=== PATIENT | male | born 1955 | race Caucasian/White ===

== ENCOUNTER 2017-01-02 07:36 | Inpatient (IN) ==
[2017-01-02] MEDS ORDERED: SODIUM CHLORIDE 0.9% 1,000 ML IV STA ×2 (07:58→08:07)
--- NOTE | 2017-01-02 08:07 | Emergency Department Note ---
Duke Miller Emily, am scribing for, and in the presence of, Mao Koch MD 08:01. Zee Miller James D, MD, personally performed the services described in this documentation, ascribed by Loreta Wall in my presence, and it is both accurate and complete 805 . Arrival - Arrival Chief Complaint: Altered Mental Status Stated Complaint: altered mental status ED Nursing Triage Note: Brought in per EMS from [facility] with c/ o altered mental status onset this am per nursing staff. Resposive to painful stimuli only. +fever. Mode of Arrival: Stretcher Limitations: Altered Mental Status Source: EMS, RN Notes Reviewed Time Seen by Provider: 01/02/17 07:54 - History of Present Illness HPI Narrative: Pt is a 61 y/o male who came to ED by EMS from [facility] for further evaluation of AMS that onset this morning. Pt is non verbal and not following commands. Pt's glucose level was 142 at detention and usually is never below 350. Pt has granulated sugar around mouth. Onset (ago): hour(s) Consistency: constant Severity: moderate Severity scale (1-10): 7 Quality: other (altered) Allergies/Adverse Reactions: Allergies Allergy/AdvReac Type Severity Reaction Status Date / Time Sulfa (Sulfonamide Allergy Unknown/Unable Verified 01/02/17 08:14 Antibiotics) to obtain Review of System - Review of System ROS unobtainable: due to mental status Medical,Surgical,& Family Hx - Medical History Endocrine: History of: Diabetes Mellitus (NIDDM) - Family History Family History: noncontributory - Social History Smoking Status: Never smoker Marital Status: Single Lives With:: detention Exam Vital Signs: Vital Signs Temperature 99.0 F 01/02/17 07:36 Pulse Rate 121 H 01/02/17 07:42 Respiratory Rate 32 H 01/02/17 07:42 Blood Pressure 161/86 01/02/17 07:36 O2 Sat by Pulse Oximetry 98 01/02/17 07:40 GENERAL: This is a chronically ill appearing white male with granulated sugar around his oropharynx, in no apparent distress. Gag reflex is intact. VITAL SIGNS: Reviewed HEENT: Head is atraumatic and normocephalic. Pupils are equal round react to light. Extraocular movements are intact. Oropharynx is benign with dry mucous membranes. NECK: Neck is soft and supple without tenderness. There are no masses. There is no lymphadenopathy. LUNGS: Lungs are clear to auscultation. Chest rises symmetrically. There is no chest wall tenderness. CV: Heart is rapid rate without murmurs rubs or gallops. ABDOMEN: Abdomen is soft, nontender to palpation. There are no abdominal abnormal masses palpated. There is no organomegaly. Bowel sounds are present and active. SKIN: Skin is warm and dry. No rash. EXTREMITIES: Patient has full range of motion without tenderness. There is no pedal edema. NEUROLOGIC: Awake but does not follow commands. Nonverbal. Cranial nerves II through XII are grossly intact. Toes are downgoing bilaterally. Course - Consultations Consultation #1: Discussed with hospitalist. Patient will be admitted to their service. Time: 08:49 Results - Labs CBC & BMP: 01/02/17 07:49 01/02/17 07:49 Lab Results: I have reviewed the patients labs Labs: Laboratory Tests 01/02/17 08:17 POC Glucose 155 H Laboratory Tests 01/02/17 07:49 INR 1.2 PT Patient/Control Mix 12.9 Circ Anticoag PTT 29.6 Laboratory Tests 01/02/17 01/02/17 01/02/17 07:49 08: 08:46 ABG pH 7.603 H* ABG pCO2 23.2 L ABG pO2 93.4 ABG HCO3 27.2 H ABG Total CO2 19.5 L ABG O2 Saturation 98.2 ABG Base Excess 3.1 H Sodium 132 L Potassium 3.2 L Chloride 96 L Carbon Dioxide 25 Anion Gap 14.2 BUN 23 H Creatinine 0.70 GFR Calculation 109 BUN/Creatinine Ratio 32.00 H Glucose 144 H POC Glucose 155 H Calculated Osmolality 270.5 L Total Bilirubin 2.50 H AST 56 H ALT 56 Alkaline Phosphatase 187 H Troponin I 0.332 H Total Protein 8.2 Albumin 3.1 L Globulin 5.1 H Albumin/Globulin Ratio 0.6 L TSH 3rd Generation 2.540 Laboratory Tests 01/02/17 07:49 Urine RBC 2 Urine WBC 10 Laboratory Tests 01/02/17 07:49 WBC 12.4 H RBC 3.81 Hgb 14.2 Hct 35.9 L MCV 94.2 MCH 37 H MCHC 39.6 H Plt Count 131 Lymph % (Auto) 10.2 L Harford % (Auto) 15.5 H Neut # (Auto) 9.0 H Lymph # (Auto) 1.3 L Harford # (Auto) 1.9 H Laboratory Tests 01/02/17 01/02/17 01/02/17 07:49 07:49 08:35 Total Counted 100 Segmented Neutrophils 70 Band Neutrophils 7 Lymphocytes 16 L Monocytes 7 Platelet Estimate Normal Hypochromasia 1+ Ovalocytes Slight Lactic Acid 3.6 H Ammonia 251 H - EKG EKG results: interpreted by ERMD - Impressions EKG: Sinus tachycardia with rate of 118, nonspecific ST-T wave changes, normal axis. - Diagnostic Findings Procedure: Chest x-ray: image reviewed by me, CT: image reviewed by me (CT head : No acute intracranial process. No significant interval change from the previous study.) Disposition Clinical Impression: Altered mental status, Elevated troponin, UTI (urinary tract infection), Diabetes mellitus Case discussed with: patient Disposition: Still a Patient Condition: Guarded Time of Disposition: 08:49
[2017-01-02 08:16] LABS: Basophils # 0.1 10*3/uL (0.0-0.2); Basophils % 0.6 % (0.0-0.8); Eosinophils # 0.1 10*3/uL (0.0-0.87); Eosinophils % 0.6 % (0.00-10.9); Hematocrit 35.9 VOL% (42.0-52.0); Immature Granulocytes % 0.6 %; Immature Granulocytes Absolute 0.07 #; Lymphocytes # 1.3 10*3/uL (1.4-4.0); Lymphocytes % 10.2 % (21.2-54.2); Mean Corpuscular HGB Conc 39.6 GM/DL (32-36); Mean Corpuscular Hemoglobin 37 PG (27-34); Mean Corpuscular Volume 94.2 FL (87-102); Mean Platelet Volume 10.1 FL (9.6-12.0); Monocytes # 1.9 10*3/uL (0.11-0.8); Monocytes % 15.5 % (1.7-12.7); Neutrophils % 72.5 % (38.7-73.9); Platelet Count 131 T/CUMM (130-400); Red Blood Count 3.81 MC/CUMM (3.8-5.5); Red Cell Distribution Width 12.2 % (9.3-17.3); White Blood Count 12.4 T/CUMM (4-12)
[2017-01-02 08:29] LABS: INR 1.2; PT Patient Result 12.9 SECS; Partial Thromboplastin Time 29.6 SECS (0-40)
[2017-01-02 08:37] LABS: Alanine Aminotransferase 56 U/L (16-61); Albumin 3.1 G/DL (3.4-5.0); Alkaline Phosphatase 187 U/L (45-117); Apearance,Urine Hazy (Clear); Aspartate Amino Transferase 56 U/L (0-37); Bacteria,Urine Occasional /HPF (Few); Bilirubin,Urine Negative (Negative); Blood Urea Nitrogen 23 MG/DL (7-18); Blood, Urine Trace mg/dL (Negative); Calcium 9.7 MG/DL (8.5-10.1); Glucose 144 MG/DL (74-106); Glucose,Urine (UA) >=1000 mg/dL (Negative); Ketones,Urine Negative (Negative); Mucus,Urine Occasional /LPF (Occasional); Nitrite,Urine Negative (Negative); Osmolality,Calculated 270.5 MOS/KG (273-304); Potassium 3.2 MMOL/L (3.5-5.1); Protein,Urine Negative; RBC,Urine 2 /HPF (0-4); Sodium 132 MMOL/L (136-145); Squamous Epithelial Cell,Urine Occasional /HPF (0-10); Total Protein 8.2 G/DL (6.4-8.3); Urine Color Yellow (Yellow); Urine Specific Gravity 1.005 (1.001-1.035); WBC,Urine 10 /HPF (0-6)
[2017-01-02 08:38] LABS: Troponin I Only 0.332 NG/ML (0.00-0.045)
--- NOTE | 2017-01-02 08:41 | EKG Report ---
Stationary ECG Study [facility] ER Test Date: 01/02/2017 8:24:48 AM Pat Name: PK STEARNS Department: Room: Gender: M Community Support Associate: : 1955 Requested by: Mao Jimenez Order Number: [id number] Reading MD: LEEANN JOHNSON Intervals Pitman Rate: 118 P: 67 DC: 141 QRS: 50 QRSD: 98 T: 67 QT: 340 QTc: 410 Interpretive Statements SINUS TACHYCARDIA NONSPECIFIC T-WAVE ABNORMALITY Electronically Signed On 01-02-17 16:54:19 CDT by LEEANN JOHNSON [email or web address]
[2017-01-02 08:44] LABS: ABG Base Excess 3.1 MMOL/L (-2.5-2.5); ABG HCO3 27.2 MMOL/L (20-26); ABG Oxygen Saturation 98.2 % (95-100); ABG PCO2 23.2 MM HG (35-48); ABG PO2 93.4 MM HG (80-95); ABG TCO2 19.5 MMOL/L (23-27)
[2017-01-02 08:47] LABS: ABG PH 7.603 (7.35-7.45)
[2017-01-02 08:48] LABS: Barbiturates Screen,Urine Negative (Negative); Benzodiazepines Screen,Urine Negative (Negative); Cannabinoid Screen,Urine Negative (Negative); Opiate Screen,Urine Negative (Negative); Phencyclidine Screen,Urine Negative (Negative)
[2017-01-02] MEDS ORDERED: cefTRIAXone 1,000 MG in SODIUM CHLORIDE 0.9% 100 ML IV STA (08:50)
[2017-01-02 09:06] LABS: Hemoglobin 14.2 GM/DL (14.0-18.0)
[2017-01-02] MEDS ORDERED: cefTRIAXone 1,000 MG VIAL ONE (09:09)
--- NOTE | 2017-01-02 09:11 | CT Report ---
History: Mental status changes Date: 01/02/2017 Study: CT head without contrast Comparison exam: December 24, [address] sections were obtained through the head without IV contrast. Total DLP measures 1025.6 mGy*cm. This CT exam was performed using one or more the following dose reduction techniques: Automated exposure control, adjustment of the MA and/or KV according to patient size, or use of iterative reconstruction technique. The ventricles are midline in position without evidence of hydrocephalus. There is no mass or parenchymal hemorrhage. There is no gross CT evidence of acute cortical stroke. There is minimal cerebral atrophy. There is a small amount of ill-defined low density in the periventricular white matter without mass effect compatible with changes of small vessel disease. There is no acute extra-axial hematoma. There is no acute abnormality of the calvarium. The partially visualized paranasal sinuses and mastoid air cells are clear Impression: No acute intracranial process. No significant interval change from the previous study PROCEDURE INTERPRETED AT [facility] DEPARTMENT OF RADIOLOGY Final Report Signed by: Dr. Talita Rogers
[2017-01-02 09:12] LABS: Band Neutrophils 7 % (0-10); Hypochromasia 1+; Lymphocytes 16 % (20-55); Ovalocytes Slight; Platelet Estimate Normal; Segmented Neutrophils 70 % (50-85); Total Cells Counted 100
[2017-01-02 09:17] LABS: Ammonia 251 UMOL/L (11-32)
[2017-01-02] MEDS ORDERED: ONDANSETRON 4 MG/2 ML VIAL IV PRN (10:02)
[2017-01-02] MEDS ORDERED: ALBUTEROL 2.5 MG/3 ML NEB RESP TX PRN (10:02)
[2017-01-02] MEDS ORDERED: NALOXONE 0.4 MG/ML VIAL ONE (10:04)
[2017-01-02] MEDS ORDERED: NALOXONE 0.4 MG/ML VIAL IV STA (10:05)
[2017-01-02] MEDS ORDERED: SODIUM CHLORIDE 0.9% 1,900 ML IV ONE ×2 (10:15→12:21)
[2017-01-02] MEDS ORDERED: LACTULOSE 20 GM/30 ML UDCUP NG STA (10:19)
[2017-01-02 10:39] LABS: Risk Ratio 1.43; VLDL CHOLESTEROL 26.6 MG/DL
[2017-01-02] MEDS ORDERED: PANTOPRAZOLE 40 MG VIAL IV ONE (10:42)
[2017-01-02] MEDS: PANTOPRAZOLE 40 MG VIAL IV SCH (10:44)
--- NOTE | 2017-01-02 10:47 | Hospitalist History & Physical ---
<Trip Villarreal - Last Filed: 01/02/17 10:43> Assessment and Plan (1) Altered mental status Status: Acute Assessment and plan: Admit to ICU. Cardiac monitoring. Ammonia 251. ph 7.6. Give lactulose once and repeat. CT negative. CXR negative. Lactic acid 3.6 WBC 12.4. Implement sepsis protocol. Haywood catherer. Strict I&Os. Blood cultures pending. IV antibiotics. Current Visit: Yes (2) Diabetes mellitus Status: Acute Assessment and plan: Accuchecks achs. SSI as necessary. Current Visit: Yes (3) Elevated troponin Status: Acute Assessment and plan: Cycle troponins and cardiac enzymes. Current Visit: Yes (4) UTI (urinary tract infection) Status: Acute Assessment and plan: IVF. IV antibiotics (Zosyn) Current Visit: Yes (5) Hypokalemia Status: Acute Assessment and plan: K 3.2. Replace via ng tube and recheck. Current Visit: Yes History of Present Illness Chief complaint: altered mental status History of present illness: Mr. Aquino is a 61 year old male with a history of dm, alcohol abuse, bph, and anemia that was transferred from [facility] for further evaluation of altered mental status. Per chart review, pt. was very lethargic this am. Nurse checked his blood sugar and he was 168. Because they are used to patient' s blood sugars in the 300s, they gave him sugar per mouth. They noted an initial increase in his responsiveness but that declined. The patient began to sweat profusely, remained nonverbal and responded only to tactile stimuli. They alerted EMS and pt was transported to our facility. On examination in ED bed 9, patient was noted to be responsive only to painful stimuli. Labs reveal elevated WBC at 12.5, lactic acid of 3.6, ph of 7.6, and elevated troponin. Pt' s case was dicussed with Dr. Mckeon and Dr. Del Valle; patient will be accepted onto our service. Pt. will be admitted and placed in ICU for close monitoring. Sepsis protocol will be implemented. Home Medications Medication Instructions Recorded Confirmed Type Furosemide [Furosemide] 40 mg PO BID 01/02/17 01/02/17 History Insulin Aspart [NovoLOG FlexPen] 8 units SUBCUT AC 01/02/17 01/02/17 History Insulin Glargine,Hum.rec.anlog 47 units SUBCUT BID 01/02/17 01/02/17 History [Lantus SoloStar] Magnesium Hydroxide Susp [Milk of 30 ml PO DAILY PRN 01/02/17 01/02/17 History Magnesia] Methocarbamol [Methocarbamol] 750 mg PO Q8H PRN 01/02/17 01/02/17 History Multivitamin (Centrum) [Centrum 1 tablet PO DAILY 01/02/17 01/02/17 History Tab] Omeprazole [Omeprazole] 20 mg PO BID 01/02/17 01/02/17 History Ondansetron HCl [Ondansetron HCl] 4 mg PO Q6H PRN 01/02/17 01/02/17 History Oxycodone HCl [Oxycodone HCl] 5 mg PO TID 01/02/17 01/02/17 History Tamsulosin HCl [Tamsulosin HCl] 0.4 mg PO QAM 01/02/17 01/02/17 History Terbinafine 1% Cream [Lamisil AT 1 applic TOP BID 01/02/17 01/02/17 History 1% Cream] metOLazone [Metolazone] 5 mg PO QAM 01/02/17 01/02/17 History Allergies Allergy/AdvReac Type Severity Reaction Status Date / Time Sulfa (Sulfonamide Allergy Unknown/Unable Verified 01/02/17 08:14 Antibiotics) to obtain Medical,Surgical,& Family Hx - Medical History Endocrine: History of: Diabetes Mellitus (NIDDM) Genitourinary: History of: Recurring Urinary Tract Infections Gastrointestinal: History of: Liver Problems - Social History Smoking Status: Never smoker Frequency of Alcohol Use: Unknown Type of Drug Use: Unknown ROS unobtainable: due to mental status Exam - Constitutional Vitals: Period Temp Pulse Resp BP Sys/Grande Pulse Ox Last 24 Hr 99.0 F-99.0 F 121-122 32-32 161-161/86-86 98-98 General appearance: normal weight, mild distress - Head Head exam: Present: normal inspection, normocephalic - Eye Eye exam: Absent: EOMI, scleral icterus Pupils: Present: fixed - Respiratory Respiratory exam: Present: rhonchi, wheezes. Absent: clear to auscultation bilaterally - Cardiovascular Cardiovascular exam: Present: tachycardia - GI/Abdominal GI/Abdominal exam: Present: normal bowel sounds, soft. Absent: tenderness - Extremities Exam Extremities exam: Present: normal capillary refill. Absent: full ROM, edema - Neurological Exam Neurological exam: Present: altered, motor sensory deficit. Absent: alert - Psychiatric Psychiatric exam: Present: other (unable to assess due to mental state) - Skin Skin exam: Present: normal color, warm, dry Results - Labs CBC & BMP: 01/02/17 07:49 01/02/17 07:49 Lab Results: I have reviewed the past 24 hour labs - EKG EKG results: interpreted by SWETA <Beth Del Valle - Last Filed: 01/02/17 13:41> Assessment and Plan (1) Aspiration into airway Status: Acute Assessment and plan: no response to narcan, could be due to elevated ammonia of 251, may need mri of brain in am Current Visit: Yes (2) Altered mental status Status: Acute Assessment and plan: may need mri, could be due to septic shock and elevated ammonia Current Visit: Yes (3) Diabetes mellitus Status: Acute Assessment and plan: hgb A1c 9.2, decrease lantus Current Visit: Yes (4) Elevated troponin Status: Acute Assessment and plan: most likely due to strain Current Visit: Yes (5) Hypokalemia Status: Acute Current Visit: Yes (6) UTI (urinary tract infection) Status: Acute Current Visit: Yes (7) Severe dehydration Status: Acute Assessment and plan: received two liters of NS Current Visit: Yes (8) Cirrhosis Status: Acute Assessment and plan: treat elevated ammonia, given thiamine and folate, lactulose 20 ml po tid Current Visit: Yes (9) Sepsis Status: Acute Assessment and plan: sepsis order set used, blood cx, uti, lactic acid elevated, zosyn for abx Current Visit: Yes History of Present Illness History of present illness: Mr. Aquino is a 61 year old male seen and examined. Agree with above. Patient in respiratory distress due to aspiration. Unable to protect airway but Dr. mckeon felt he was responsive enough to protect his airway. I asked nursing to place an NG tube to give him lactulose. Based on his electrolytes he is extremely dry and has already received IVF in the Er. Received total of two liters per ER. Medical,Surgical,& Family Hx - Surgical History Additional Surgical History: lethargic cannot obtain any information - Family History Additional Family History: lethargic cannot obtain any information - Social History Marital Status: Single Lives With:: nh Functional capacity: bed bound Exam - Constitutional Vitals: Period Temp Pulse Resp BP Sys/Grande Pulse Ox Last 24 Hr 99.0 F-99.0 F 121-122 32-32 161-161/86-86 98-98 - Eye Pupils: Present: FARZANA - ENT ENT exam: Present: normal exam, normal external ear exam - Psychiatric Psychiatric exam: Present: depressed, flat affect Results - Labs CBC & BMP: 01/02/17 07:49 01/02/17 07:49 - Diagnostic Findings Procedure: Chest x-ray: report reviewed by me (no infiltrate), CT: report reviewed by me (head nothing acute ) Sepsis - Sepsis Classification of Sepsis: Septic Shock Sepsis documentation within 6 hours of presentation: passive leg raise - Physical Exam Respiratory exam: rhonchi, wheezes Peripheral pulses: Radial (L): 2+, Radial (R): 2+, Dorsalis Pedis (L) PM: 2+, Dorsalis Pedis (R) PM: 2+, Posterior Tibialis (L): 2+, Posterior Tibialis (R): 2 + Cardiovascular exam: tachycardia Skin exam: normal color
--- NOTE | 2017-01-02 10:49 | XRay Report ---
History: Shortness of breath Date: 01/02/2017 Study: Chest x-ray AP portable Comparison exam: December 24, 2016 The cardiac silhouette is not enlarged. The mediastinal contours are unchanged. The pulmonary vasculature is not grossly engorged. There is no confluent infiltrate or layering pleural effusion. Osseous structures are similar. There are old rib fractures on the left. Impression: No acute cardiopulmonary process compared to the previous study PROCEDURE INTERPRETED AT [facility] DEPARTMENT OF RADIOLOGY Final Report Signed by: Dr. Talita Rogers
[2017-01-02] MEDS ORDERED: POTASSIUM CHLORIDE 20 MEQ/15 ML UDCUP NG PRN (10:59)
[2017-01-02] MEDS ORDERED: LACTULOSE 20 GM/30 ML UDCUP ONE (11:07)
[2017-01-02] MEDS ORDERED: PIPERACILLIN/TAZOBACTAM 3,375 MG VIAL IV ONE (11:24)
[2017-01-02] MEDS: SODIUM CHLORIDE 0.9% 1,000 ML IV SCH ×2 (11:35→21:25)
[2017-01-02] MEDS: PIPERACILLIN/TAZOBACTAM 3,375 MG in SODIUM CHLORIDE 0.9% 100 ML IV SCH ×2 (11:35→19:01)
--- NOTE | 2017-01-02 11:43 | XRay Report ---
Portable chest Date: 01/02/2017 Clinical history: Nasogastric tube placement Comparison: 01/02/2017 Technique: Portable AP sitting chest Findings: The tip of the nasogastric tube projects in satisfactory position in the stomach. Otherwise the chest is stable in appearance. Impression: The nasogastric tube projects in satisfactory position in the stomach. PROCEDURE INTERPRETED AT [facility] DEPARTMENT OF RADIOLOGY Final Report Signed by: Dr. Aicha Valenzuela
[2017-01-02] MEDS ORDERED: SODIUM CHLORIDE 0.9% 1,000 ML IV ONE (12:19)
[2017-01-02] MEDS ORDERED: LACTATED RINGERS 500 ML IV ONE (12:21)
[2017-01-02] MEDS ORDERED: POTASSIUM CHLORIDE 20 MEQ/15 ML UDCUP NG SCH (12:33)
[2017-01-02] MEDS ORDERED: FOLIC ACID 5 MG/1 ML VIAL IV SCH (13:00)
[2017-01-02] MEDS ORDERED: MAGNESIUM SULF RIDER 2 GM in PREMIX 1 EACH IV ONE (15:30)
[2017-01-02] MEDS: THIAMINE 200 MG/2 ML VIAL IV SCH (16:31)
[2017-01-02] MEDS: LACTULOSE 20 GM/30 ML UDCUP PO SCH ×2 (16:33→22:34)
[2017-01-02 17:12] LABS: CKMB % 0.7 %
[2017-01-02] MEDS: INSULIN REGULAR 100 UNIT/ML SUBCUT SCH ×2 (17:16→22:35)
[2017-01-02] MEDS: INSULIN GLARGINE 100 UNIT/ML SUBCUT SCH (17:17)
[2017-01-02 17:21] LABS: Troponin I Only 0.438 NG/ML (0.00-0.045)
--- NOTE | 2017-01-02 17:39 | ECHO Report ---
Gerald Aquino Exam Date: 01/02/2017 12:38 Referring Physician: Technologist: shelton Sanford ARDMS, RVT Age: 61 Ht (in): 72 Wt (lb): 140 Gender: M Exam Location: [facility] Echo Indications: Altered mental status, NIDDM, Elevated troponin, UTI, Hypokalemia, ETOH abuse BP: 161 / 86 HR: 99 Rhythm: Sinus Technical Quality: Very technically difficult study IMPRESSIONS Very technically difficult study Left ventricular ejection fraction is >65 %. Mild diastolic dysfunction. The right heart is mildly enlarged. Mild tricuspid valve regurgitation. MEASUREMENTS (Male / Female) Normal Values 2D ECHO LV Diastolic Diameter PLAX 4.2 cm 4.2 - 5.9 / 3.9 - 5.3 cm LV Systolic Diameter PLAX 1.7 cm LV Fractional Shortening PLAX 60.3 % IVS Diastolic Thickness 0.7 cm 0.6 - 1.0 / 0.6 - 0.9 cm LVPW Diastolic Thickness 1.0 cm 0.6 - 1.0 / 0.6 - 0.9 cm RV Internal Dim ED PLAX 3.9 cm Aortic Root Diameter 2.9 cm LA Systolic Diameter LX 3.1 cm 3.0 - 4.0 / 2.7 - 3.8 cm DOPPLER TR Peak Velocity 248.0 cm/s TR Peak Gradient 24.6 mmHg FINDINGS Left Ventricle Normal left ventricular cavity size. Normal left ventricular wall thickness. Mild diastolic dysfunction. Left ventricular ejection fraction is >65 %. Right Ventricle Mildly increased right ventricular size. Right Atrium The right atrium is mildly enlarged. Left Atrium The left atrium is normal in size. Mitral Valve Mitral valve sclerosis. No mitral valve regurgitation. Aortic Valve Morphologically normal aortic valve without significant sclerosis or stenosis. There is no aortic regurgitation. Tricuspid Valve Morphologically normal tricuspid valve. Mild tricuspid valve regurgitation. Tricuspid regurgitation velocities suggest a PAP of 35 mmHg. Pulmonic Valve Pulmonic valve not well visualized. Pericardium Normal pericardium without effusion. Aorta Normal ascending aorta dimension. Ronak Plata (Electronically Signed) Final Date: 02 January 2017 17:38
[2017-01-02] MEDS: FOLIC ACID INJ 1 MG in SYRINGE 1 EACH IV SCH (18:26)
[2017-01-02] MEDS: DESITIN 4OZ/NYSTATIN 15 GRAM MIXTURE PASTE TOP SCH (22:35)
[2017-01-02] MEDS: TERBINAFINE 1% CREAM 12 GM TUBE TOP SCH (22:35)
[2017-01-03] MEDS: INSULIN GLARGINE 100 UNIT/ML SUBCUT SCH ×3 (00:16→21:44)
[2017-01-03] MEDS: PIPERACILLIN/TAZOBACTAM 3,375 MG in SODIUM CHLORIDE 0.9% 100 ML IV SCH ×3 (03:38→18:33)
[2017-01-03 04:17] LABS: ABG HCO3 23.6 MMOL/L (20-26); ABG Oxygen Saturation 98.9 % (95-100); ABG PCO2 24.7 MM HG (35-48); ABG PH 7.525 (7.35-7.45)
[2017-01-03 06:05] LABS: Basophils % 0.3 % (0.0-0.8); Eosinophils # 0.1 10*3/uL (0.0-0.87); Eosinophils % 1.2 % (0.00-10.9); Immature Granulocytes % 0.3 %; Immature Granulocytes Absolute 0.03 #; Lymphocytes # 1.6 10*3/uL (1.4-4.0); Lymphocytes % 15.3 % (21.2-54.2); Mean Corpuscular HGB Conc 37.5 GM/DL (32-36); Mean Corpuscular Hemoglobin 37 PG (27-34); Mean Corpuscular Volume 98.5 FL (87-102); Monocytes # 1.5 10*3/uL (0.11-0.8); Monocytes % 14.6 % (1.7-12.7); Neutrophils # 7.1 10*3/uL (1.4-7.4); Neutrophils % 68.3 % (38.7-73.9); Red Blood Count 3.25 MC/CUMM (3.8-5.5); Red Cell Distribution Width 12.7 % (9.3-17.3); White Blood Count 10.4 T/CUMM (4-12)
[2017-01-03 06:09] LABS: Platelet Count 98 T/CUMM (130-400)
[2017-01-03 06:28] LABS: Lactic Acid 1.8 MMOL/L (0.4-2.0)
[2017-01-03 06:35] LABS: Calcium 8.5 MG/DL (8.5-10.1); Magnesium 2.1 MG/DL (1.8-2.4); Osmolality,Calculated 283.1 MOS/KG (273-304); Potassium 2.6 MMOL/L (3.5-5.1)
[2017-01-03 06:40] LABS: Hypochromasia 1+; Platelet Estimate Decreased
[2017-01-03 06:51] LABS: CKMB % 0.4 %
[2017-01-03 06:52] LABS: Troponin I Only 0.205 NG/ML (0.00-0.045)
--- NOTE | 2017-01-03 07:53 | XRay Report ---
Portable chest Date: 01/03/2017 Clinical history: Shortness of breath Comparison: 01/02/2017 Technique: Portable AP sitting chest Findings: The heart is normal in size with calcification in the aortic knob. Nasogastric tube seen entering the stomach. Minimally progressive parenchymal findings in the left lower lung zone. Postoperative findings in the proximal right humerus with osteopenia and degenerative changes. Old healed rib fractures with additional more acute left eighth and ninth rib fractures laterally. Impression: Nasogastric tube seen entering the stomach. Chronic scarring lungs. Progressive minimal infiltration/edema at left lung base with no definite pneumothorax. Additional acute minimally displaced fractures of the left eighth and ninth ribs laterally. PROCEDURE INTERPRETED AT [facility] DEPARTMENT OF RADIOLOGY Final Report Signed by: Dr. Aicha Valenzuela
[2017-01-03] MEDS: POTASSIUM CHLORIDE 20 MEQ/15 ML UDCUP PER TUBE SCH ×4 (07:55→12:24)
[2017-01-03] MEDS: SODIUM CHLORIDE 0.9% 1,000 ML IV SCH ×2 (08:00→17:31)
[2017-01-03] MEDS ORDERED: POTASSIUM CHLORIDE 20 MEQ/15 ML UDCUP NG PRN (08:29)
[2017-01-03] MEDS: INSULIN REGULAR 100 UNIT/ML SUBCUT SCH ×4 (09:30→21:44)
[2017-01-03] MEDS: LACTULOSE 20 GM/30 ML UDCUP PO SCH (09:31)
[2017-01-03] MEDS: PANTOPRAZOLE 40 MG VIAL IV SCH (09:32)
[2017-01-03] MEDS: THIAMINE 200 MG/2 ML VIAL IV SCH (09:33)
[2017-01-03] MEDS: TERBINAFINE 1% CREAM 12 GM TUBE TOP SCH ×2 (09:34→21:45)
[2017-01-03] MEDS ORDERED: GLUCAGON 1 MG VIAL IM PRN (09:54)
[2017-01-03] MEDS ORDERED: DEXTROSE 50% 25 GM/50 ML SYRINGE IV PRN (09:54)
[2017-01-03] MEDS: DESITIN 4OZ/NYSTATIN 15 GRAM MIXTURE PASTE TOP SCH ×2 (10:50→21:41)
[2017-01-03] MEDS: FOLIC ACID INJ 1 MG in SYRINGE 1 EACH IV SCH (11:09)
--- NOTE | 2017-01-03 16:45 | Hospitalist Progress Note ---
Assessment and Plan (1) Aspiration into airway Status: Acute Assessment and plan: no response to narcan, patient better able to protect his airway now that his ammonia levels down. Current Visit: Yes (2) Altered mental status Status: Acute Assessment and plan: Resolving with reversal of his ammonia. We will decrease lactulose. Current Visit: Yes (3) Diabetes mellitus Status: Acute Assessment and plan: hgb A1c 9.2, blood sugar is stable Current Visit: Yes (4) Elevated troponin Status: Acute Assessment and plan: Troponin improving. Elevated CPKs most likely due to falls due to alcoholism. Current Visit: Yes (5) Hypokalemia Status: Acute Assessment and plan: Replacing rechecked at 530. Current Visit: Yes (6) UTI (urinary tract infection) Status: Acute Assessment and plan: Growing gram-positive cocci continue Zosyn for now. Current Visit: Yes (7) Severe dehydration Status: Acute Assessment and plan: Blood sugar improved we will Hep-Lock IV fluids as cirrhotics cannot tolerate too much. Current Visit: Yes (8) Cirrhosis Status: Acute Assessment and plan: Ammonia level improving continue lactulose but once a day Current Visit: Yes (9) Sepsis Status: Acute Assessment and plan: Lactic acid level did not exceed 1.8. Continue Zosyn. Current Visit: Yes (10) Thrombocytopenia Status: Acute Assessment and plan: Due to cirrhosis. Current Visit: Yes Hospitalist: Subjective Interval history: Patient more alert today ammonia level down to 34. We DC'd his NG, DC'd his Haywood and started him on a diet. We moved him out of the unit. He should not require a monitor. We are replacing his potassium. Exam - Constitutional Vitals: Period Temp Pulse Resp BP Sys/Grande Pulse Ox Last 24 Hr 97.8 F-98.4 F 81-108 14-24 102-150/56-87 95-100 Exam: Heart Rate-[RRR] Lungs-[CTAB] GI-[+bs soft, NT] Neuro [Motor 5/5], [alert and oriented times 1] psych [depressed mood and flat affect] General [no acute distress] Results - Labs CBC & BMP: 01/03/17 05:05 01/03/17 05:05 Lab Results: I have reviewed the past 24 hour labs Labs: Gram-positive cocci in urine, blood cultures 2 no growth - Diagnostic Findings Procedure: Chest x-ray: report reviewed by me (Mild edema in the left lung base. Acute minimally displaced fractures of the left eighth and ninth rib)
[2017-01-04] MEDS: PIPERACILLIN/TAZOBACTAM 3,375 MG in SODIUM CHLORIDE 0.9% 100 ML IV SCH ×2 (02:24→11:38)
[2017-01-04 05:20] LABS: Basophils # 0.1 10*3/uL (0.0-0.2); Basophils % 0.7 % (0.0-0.8); Eosinophils # 0.3 10*3/uL (0.0-0.87); Eosinophils % 4.3 % (0.00-10.9); Hematocrit 29.1 VOL% (42.0-52.0); Hemoglobin 10.9 GM/DL (14.0-18.0); Immature Granulocytes % 0.5 %; Immature Granulocytes Absolute 0.04 #; Lymphocytes # 1.5 10*3/uL (1.4-4.0); Mean Corpuscular HGB Conc 37.5 GM/DL (32-36); Mean Corpuscular Hemoglobin 37 PG (27-34); Mean Platelet Volume 9.7 FL (9.6-12.0); Monocytes # 1.1 10*3/uL (0.11-0.8); Monocytes % 15.2 % (1.7-12.7); Neutrophils # 4.4 10*3/uL (1.4-7.4); Neutrophils % 59.3 % (38.7-73.9); Red Blood Count 2.97 MC/CUMM (3.8-5.5); Red Cell Distribution Width 12.6 % (9.3-17.3); White Blood Count 7.5 T/CUMM (4-12)
[2017-01-04 05:28] LABS: Platelet Count 85 T/CUMM (130-400)
[2017-01-04 05:43] LABS: Calcium 7.8 MG/DL (8.5-10.1); Magnesium 1.9 MG/DL (1.8-2.4); Osmolality,Calculated 277.1 MOS/KG (273-304); Potassium 3.9 MMOL/L (3.5-5.1)
[2017-01-04 05:48] LABS: Hypochromasia 1+; Platelet Estimate Decreased
[2017-01-04] MEDS: INSULIN REGULAR 100 UNIT/ML SUBCUT SCH ×2 (08:29→13:22)
[2017-01-04] MEDS: DESITIN 4OZ/NYSTATIN 15 GRAM MIXTURE PASTE TOP SCH (08:38)
[2017-01-04] MEDS: THIAMINE 200 MG/2 ML VIAL IV SCH (08:38)
[2017-01-04] MEDS: TERBINAFINE 1% CREAM 12 GM TUBE TOP SCH (08:38)
[2017-01-04] MEDS: INSULIN GLARGINE 100 UNIT/ML SUBCUT SCH (08:38)
[2017-01-04] MEDS: FOLIC ACID INJ 1 MG in SYRINGE 1 EACH IV SCH (08:55)
[2017-01-04] MEDS ORDERED: LACTULOSE 20 GM/30 ML UDCUP PO SCH (09:00)
[2017-01-04] MEDS: PANTOPRAZOLE 40 MG VIAL IV SCH (10:17)
[2017-01-04 11:29] VITALS: BP 112/57
--- NOTE | 2017-01-04 11:33 | Discharge Summary ---
Hospital Course - Hospital Course Hospital Course: Mr. Aquino is a 61 year old male with a history of dm, alcohol abuse, bph, and anemia that was transferred from [facility] for further evaluation of altered mental status on 01/02. He was noted to have an ammonia level of 251 on admission. Patient had a UTI. Urine culture is pending. We will put patient on 5 days of Ceftin. Patient was admitted to the ICU for further monitoring. He was given lactulose and he has ammonia levels down 34. He was transferred out of the unit. His lactulose was cut down to once a day but his ammonia level joycelyn to 73. He will have to remain on lactulose twice a day. Patient was moved out of the unit and is stable on the floor. He was noted to have some rib fractures, left eighth and ninth ribs, most likely secondary to a fall at the group home. Patient was dehydrated from the Lasix and Zaroxolyn. I gently rehydrated him and held those medicines. His potassium was low from the diarrhea and this was replaced. Patient feels great today and wants to return to the group home. Patient seen and examined. Hospital course reviewed and edited. Diagnosis - Discharge Diagnosis (1) Aspiration into airway Status: Acute (2) Altered mental status Status: Acute (3) Diabetes mellitus Status: Acute (4) Elevated troponin Status: Acute (5) Hypokalemia Status: Acute (6) UTI (urinary tract infection) Status: Acute (7) Severe dehydration Status: Acute (8) Cirrhosis Status: Acute (9) Sepsis Status: Acute (10) Thrombocytopenia Status: Acute Specialty Discharge - Follow Up or Referrals Discharge Plan - Discharge Data Disposition: Disch/Xfer to Snf - Discharge Medications New Famotidine Tab [Pepcid Tab] 20 mg PO BID #60 tablet Potassium Chloride Cap/Tab [K Dur] 20 meq PO DAILY #30 tablet Cefuroxime Tab [Ceftin] 500 mg PO BID #10 tablet Lactulose 20 gm PO BID #60 ml Albuterol Neb [Proventil Neb] 2.5 mg RESP TX RT Q1H PRN PRN Reason: Shortness Of Breath/Wheezing HYDROcodone/ACETAMIN 7.5-325 [Cameron 7.5-325] 1 tablet PO Q4H #30 tablet Continue Magnesium Hydroxide Susp [Milk of Magnesia] 30 ml PO DAILY PRN PRN Reason: Constipation Ondansetron HCl 4 mg PO Q6H PRN PRN Reason: Nausea/Vomiting Terbinafine 1% Cream [Lamisil AT 1% Cream] 1 applic TOP BID Furosemide 20 mg PO DAILY #0 Insulin Glargine,Hum.rec.anlog [Lantus SoloStar] 47 units SUBCUT BID Multivitamin (Centrum) [Centrum Tab] 1 tablet PO DAILY Tamsulosin HCl 0.4 mg PO QAM Changed Oxycodone HCl 5 mg PO BID #30 tablet Discontinued Insulin Aspart [NovoLOG FlexPen] 8 units SUBCUT AC metOLazone [Metolazone] 5 mg PO QAM Omeprazole [Omeprazole] 20 mg PO BID Methocarbamol [Methocarbamol] 750 mg PO Q8H PRN PRN Reason: MUSCLE SPASMS - Follow Up or Referral - Forms/Instructions Instructions: Dehydration (DC), Cirrhosis (DC), Urinary Tract Infection in Men (DC), Sepsis (DC), Thrombocytopenia (DC) Exam - Constitutional Vitals: Period Temp Pulse Resp BP Sys/Grande Pulse Ox Last 24 Hr 97.6 F-98.8 F 62-89 17-20 93-112/54-68 94-100 Discharge Results Procedures and tests throughout hospitalization: Pending Orders 01/02/17 Urine Culture Routine 01/02/17 08:35 Blood Culture Stat 01/05/17 04:00 Basic Metabolic Panel IN AM Comp Blood Count Auto Diff IN AM Magnesium IN AM Labs on day of discharge: Labs from last 24 hours 01/04/17 01/04/17 01/04/17 08:59 07:12 04:53 WBC RBC Hgb Hct MCV MCH MCHC RDW Plt Count MPV Neut % (Auto) Lymph % (Auto) Nye % (Auto) Eos % (Auto) Baso % (Auto) Neut # (Auto) Lymph # (Auto) Nye # (Auto) Eos # (Auto) Baso # (Auto) Immature Gran % Nucleated RBC % Immature Gran # Nucleated RBCs # Platelet Estimate Immature Plt Fraction Hypochromasia Morphology Comment Sodium 135 L Potassium 3.9 Chloride 104 Carbon Dioxide 24 Anion Gap 10.9 BUN 8 Creatinine 0.40 L GFR Calculation 148 BUN/Creatinine Ratio 20.00 Glucose 275 H POC Glucose 280 H Calculated Osmolality 277.1 Calcium 7.8 L Magnesium 1.9 Ammonia 73 H 01/04/17 01/03/1717 04:53 21:21 17:37 WBC 7.5 RBC 2.97 L Hgb 10.9 L Hct 29.1 L MCV 98.0 MCH 37 H MCHC 37.5 H RDW 12.6 Plt Count 85 L MPV 9.7 Neut % (Auto) 59.3 Lymph % (Auto) 20.0 L Nye % (Auto) 15.2 H Eos % (Auto) 4.3 Baso % (Auto) 0.7 Neut # (Auto) 4.4 Lymph # (Auto) 1.5 Nye # (Auto) 1.1 H Eos # (Auto) 0.3 Baso # (Auto) 0.1 Immature Gran % 0.5 Nucleated RBC % 0.0 Immature Gran # 0.04 Nucleated RBCs # 0.00 Platelet Estimate Decreased Immature Plt Fraction 1.5 Hypochromasia 1+ Morphology Comment Sodium Potassium 3.8 Chloride Carbon Dioxide Anion Gap BUN Creatinine GFR Calculation BUN/Creatinine Ratio Glucose POC Glucose 358 H Calculated Osmolality Calcium Magnesium Ammonia 01/03/17 15:58 WBC RBC Hgb Hct MCV MCH MCHC RDW Plt Count MPV Neut % (Auto) Lymph % (Auto) [place]ye % (Auto) Eos % (Auto) Baso % (Auto) Neut # (Auto) Lymph # (Auto) Nye # (Auto) Eos # (Auto) Baso # (Auto) Immature Gran % Nucleated RBC % Immature Gran # Nucleated RBCs # Platelet Estimate Immature Plt Fraction Hypochromasia Morphology Comment Sodium Potassium Chloride Carbon Dioxide Anion Gap BUN Creatinine GFR Calculation BUN/Creatinine Ratio Glucose POC Glucose 397 H Calculated Osmolality Calcium Magnesium Ammonia Preliminary micro results at discharge 01/02/17 Unknown Urine Culture - Preliminary Urine,Catheterized Gram Positive Cocci 01/02/17 08:35 Blood Culture - Preliminary Blood No growth at 1 day 01/02/17 08:35 Blood Culture - Preliminary Blood No growth at 1 day DS: Provider Date of admission: 01/02/17 09:01 Primary care physician: . No PCP Attending physician on admission: Beth Del Valle MD Consults: 01/02/17 10:13 Consult to Case Mgmt/Social Srvs [CONS] Routine Reason for Case Mgmt/Social Srvs: Discharge Planning 01/02/17 17:01 Consult to Dietitian [CONS] Routine Reason for Dietitian: Dietary Consult Discharging clinician: Beth Del Valle MD
--- NOTE | 2017-01-04 11:53 | Discharge Summary ---
<CherelleAlfreditobernie - Last Filed: 01/04/17 11:28> Hospital Course - Hospital Course Hospital Course: Mr. Aquino is a 61 year old male with a history of dm, alcohol abuse, bph, and anemia that was transferred from [facility] for further evaluation of altered mental status on 01/02. He was noted to have an ammonia level of 251 on admission. Patient had a UTI. Urine culture is pending. We will put patient on 5 days of Ceftin. Patient was admitted to the ICU for further monitoring. He was given lactulose and he has ammonia levels down 34. He was transferred out of the unit. His lactulose was cut down to once a day but his ammonia level joycelyn to 73. He will have to remain on lactulose twice a day. Patient was moved out of the unit and is stable on the floor. He was noted to have some rib fractures, left eighth and ninth ribs, most likely secondary to a fall at the intermediate. Patient was dehydrated from the Lasix and Zaroxolyn. I gently rehydrated him and held those medicines. His potassium was low from the diarrhea and this was replaced. Patient feels great today and wants to return to the intermediate. Patient seen and examined. Hospital course reviewed and edited. Diagnosis - Discharge Diagnosis (1) Altered mental status Status: Acute (2) Diabetes mellitus Status: Acute (3) Elevated troponin Status: Acute (4) UTI (urinary tract infection) Status: Acute (5) Hypokalemia Status: Acute Specialty Discharge - Follow Up or Referrals Discharge Plan - Discharge Data Disposition: Disch/Xfer to Snf - Discharge Medications New Famotidine Tab [Pepcid Tab] 20 mg PO BID #60 tablet Potassium Chloride Cap/Tab [K Dur] 20 meq PO DAILY #30 tablet Cefuroxime Tab [Ceftin] 500 mg PO BID #10 tablet Lactulose 20 gm PO BID #60 ml Albuterol Neb [Proventil Neb] 2.5 mg RESP TX RT Q1H PRN PRN Reason: Shortness Of Breath/Wheezing HYDROcodone/ACETAMIN 7.5-325 [Volant 7.5-325] 1 tablet PO Q4H #30 tablet Continue Magnesium Hydroxide Susp [Milk of Magnesia] 30 ml PO DAILY PRN PRN Reason: Constipation Ondansetron HCl 4 mg PO Q6H PRN PRN Reason: Nausea/Vomiting Terbinafine 1% Cream [Lamisil AT 1% Cream] 1 applic TOP BID Furosemide 20 mg PO DAILY #0 Insulin Glargine,Hum.rec.anlog [Lantus SoloStar] 47 units SUBCUT BID Multivitamin (Centrum) [Centrum Tab] 1 tablet PO DAILY Tamsulosin HCl 0.4 mg PO QAM Changed Oxycodone HCl 5 mg PO BID #30 tablet Discontinued Insulin Aspart [NovoLOG FlexPen] 8 units SUBCUT AC metOLazone [Metolazone] 5 mg PO QAM Omeprazole [Omeprazole] 20 mg PO BID Methocarbamol [Methocarbamol] 750 mg PO Q8H PRN PRN Reason: MUSCLE SPASMS - Follow Up or Referral - Forms/Instructions Instructions: Dehydration (DC), Cirrhosis (DC), Urinary Tract Infection in Men (DC), Sepsis (DC), Thrombocytopenia (DC) Exam - Constitutional Vitals: Period Temp Pulse Resp BP Sys/Grande Pulse Ox Last 24 Hr 97.6 F-98.8 F 62-89 18-20 93-112/54-68 94-100 Discharge Results Procedures and tests throughout hospitalization: Pending Orders 01/02/17 Urine Culture Routine 01/02/17 08:35 Blood Culture Stat 01/05/17 04:00 Basic Metabolic Panel IN AM Comp Blood Count Auto Diff IN AM Magnesium IN AM Labs on day of discharge: Labs from last 24 hours 01/04/17 01/04/17 01/04/17 08:59 07:12 04:53 WBC RBC Hgb Hct MCV MCH MCHC RDW Plt Count MPV Neut % (Auto) Lymph % (Auto) [place] % (Auto) Eos % (Auto) Baso % (Auto) Neut # (Auto) Lymph # (Auto) [place] # (Auto) Eos # (Auto) Baso # (Auto) Immature Gran % Nucleated RBC % Immature Gran # Nucleated RBCs # Platelet Estimate Immature Plt Fraction Hypochromasia Morphology Comment Sodium 135 L Potassium 3.9 Chloride 104 Carbon Dioxide 24 Anion Gap 10.9 BUN 8 Creatinine 0.40 L GFR Calculation 148 BUN/Creatinine Ratio 20.00 Glucose 275 H POC Glucose 280 H Calculated Osmolality 277.1 Calcium 7.8 L Magnesium 1.9 Ammonia 73 H 01/04/17 01/03/17 01/03/17 04:53 21:21 17:37 WBC 7.5 RBC 2.97 L Hgb 10.9 L Hct 29.1 L MCV 98.0 MCH 37 H MCHC 37.5 H RDW 12.6 Plt Count 85 L MPV 9.7 Neut % (Auto) 59.3 Lymph % (Auto) 20.0 L [place] % (Auto) 15.2 H Eos % (Auto) 4.3 Baso % (Auto) 0.7 Neut # (Auto) 4.4 Lymph # (Auto) 1.5 [place] # (Auto) 1.1 H Eos # (Auto) 0.3 Baso # (Auto) 0.1 Immature Gran % 0.5 Nucleated RBC % 0.0 Immature Gran # 0.04 Nucleated RBCs # 0.00 Platelet Estimate Decreased Immature Plt Fraction 1.5 Hypochromasia 1+ Morphology Comment Sodium Potassium 3.8 Chloride Carbon Dioxide Anion Gap BUN Creatinine GFR Calculation BUN/Creatinine Ratio Glucose POC Glucose 358 H Calculated Osmolality Calcium Magnesium Ammonia 01/03/17 15:58 WBC RBC Hgb Hct MCV MCH MCHC RDW Plt Count MPV Neut % (Auto) Lymph % (Auto) [place] % (Auto) Eos % (Auto) Baso % (Auto) Neut # (Auto) Lymph # (Auto) [place] # (Auto) Eos # (Auto) Baso # (Auto) Immature Gran % Nucleated RBC % Immature Gran # Nucleated RBCs # Platelet Estimate Immature Plt Fraction Hypochromasia Morphology Comment Sodium Potassium Chloride Carbon Dioxide Anion Gap BUN Creatinine GFR Calculation BUN/Creatinine Ratio Glucose POC Glucose 397 H Calculated Osmolality Calcium Magnesium Ammonia Preliminary micro results at discharge 01/02/17 Unknown Urine Culture - Preliminary Urine,Catheterized Gram Positive Cocci 01/02/17 08:35 Blood Culture - Preliminary Blood No growth at 1 day 01/02/17 08:35 Blood Culture - Preliminary Blood No growth at 1 day DS: Provider Date of admission: 01/02/17 09:01 Primary care physician: . No PCP Attending physician on admission: Beth Del Valle MD Consults: 01/02/17 10:13 Consult to Case Mgmt/Social Srvs [CONS] Routine Reason for Case Mgmt/Social Srvs: Discharge Planning 01/02/17 17:01 Consult to Dietitian [CONS] Routine Reason for Dietitian: Dietary Consult Discharging clinician: Trip Villarreal NP <Beth Del Valle - Last Filed: 01/04/17 12:36> Hospital Course - Time spent with patient Time with patient DS: Greater than 30 minutes (45 min) Diagnosis - Discharge Diagnosis (1) Aspiration into airway Status: Acute (2) Altered mental status Status: Acute (3) Diabetes mellitus Status: Acute (4) Elevated troponin Status: Acute (5) Hypokalemia Status: Acute (6) UTI (urinary tract infection) Status: Acute (7) Severe dehydration Status: Acute (8) Cirrhosis Status: Acute (9) Sepsis Status: Acute (10) Thrombocytopenia Status: Acute Discharge Plan - Discharge Data Condition at Discharge: Stable Discharge Diet: diabetic diet Activity: as per physical therapy Hygiene: no restrictions Exam - Constitutional General appearance: normal weight, no acute distress - Respiratory Respiratory exam: Present: clear to auscultation bilaterally - Cardiovascular Cardiovascular exam: Present: regular rate and rhythm. Absent: systolic murmur - GI/Abdominal GI/Abdominal exam: Present: normal bowel sounds, soft. Absent: tenderness - Extremities Exam Extremities exam: Present: edema - Neurological Exam Neurological exam: Present: alert, oriented X3 - Psychiatric Psychiatric exam: Present: normal affect, normal mood
[2017-01-04] MEDS ORDERED: INSULIN GLARGINE 100 UNIT/ML SUBCUT SCH (12:19)
--- NOTE | 2017-01-11 10:06 | Physician Query Form ---
CLICK EDIT DOCUMENT TO SELECT QUERY ANSWER --> OK --> SIGN Rosa Craig RN, CCDS Certified Clinical [employer] W) [phone] (f) [phone] [email or web address]: Make your selection(s) from the choices in EACH section by typing an "x" and enter comments in the comment section. Please use your independent medical judgment in providing your response. This request does not imply that any particular answer is desired or expected. CLINICAL INDICATORS: (Providers should not edit this section) The medical record indicates that the patient was admitted with Sepsis, AMS, Ammonia of 251# (Treated with Chronulac), also had UTI, " Pt is non verbal and not following commands", and the patient had a CT of the head. ACUITY: (x ) Acute ( ) Acute on Chronic ( ) Chronic ( ) Clinically unable to determine NATURE: (x ) Delirium due to general medical condition ( ) Dementia ( ) Encephalopathy ( ) Encephalopathy (Hepatic) ( ) Encephalopathy (Infectious) ( ) Unconscious ( ) Transient level of awareness ( ) Comatose ( ) Locked-in State ( ) Persistent Vegetative State ( ) Other, please specify: ( ) Clinically unable to determine Please indicate the underlying cause of the altered mental status (CHECK ALL THAT APPLY): ( ) Baseline dementia ( ) Alzheimer's disease ( ) Parkinson's disease ( ) Lewy body dementia ( ) Acute stroke ( ) Late effect of stroke ( ) Reactive (from emotional stress, psychological trauma) ( ) Due to narcotics/other drugs ( ) Post procedural delirium ( ) Transient ischemic attack ( ) Generalized cerebral edema ( ) Normal pressure hydrocephalus ( ) Psychiatric illness ( ) Other, please specify: ( ) Clinically unable to determine Please indicate if there is an infection, sepsis, dehydration or specific organ failure that is causing the dementia. Be specific with clarifying the relationship between that process and the mental status change. COMMENTS: PLEASE ALSO DOCUMENT RESPONSE IN PROGRESS NOTES AND/OR DISCHARGE SUMMARY Use of terms such as suspected, likely, or probable (associated with a specific diagnosis that is being evaluated, monitored, or treated as if it exists) are acceptable and can be restated in the discharge summary if not ruled out. MTDD
--- NOTE | 2017-01-14 13:03 | Physician Query Form ---
CLICK EDIT DOCUMENT TO SELECT QUERY ANSWER --> OK --> SIGN Rosa Craig RN, CCDS Certified Clinical [employer] W) [phone] (f) [phone] [email or web address] PROVIDERS: Make your selection(s) from the choices in EACH section by typing an "x" and enter comments in the comment section. Please use your independent medical judgment in providing your response. This request does not imply that any particular answer is desired or expected. CLINICAL INDICATORS: (Providers should not edit this section) The medical record indicates that the patient was admitted with Sepsis, AMS, Ammonia of 251# and On the : "There is no confluent infiltrate or layering pleural effusion"---on the : "Aspiration into airway", On the : "Progressive minimal infiltration/edema at left lung base"; patient is on antibiotics. Community Acquired and Healthcare Acquired are both unspecified terms and require further specificity. Based on the above, could you please clarify further specificity regarding the type of pneumonia you are treating (even if specific organism may not be known) ? (x ) Patient does not have pneumonia ( ) Pleural Effusion only ( ) Infiltrate is insufficient ( ) Infiltrate due to ( ) Aspiration pneumonia ( ) Gram negative pneumonia ( ) Gram positive pneumonia ( ) Bacterial pneumonia due to, please specify organism (if known): ( ) Pneumonia with Influenza ( ) Viral pneumonia ( ) Post procedural ( ) HIV associated pneumonia ( ) Radiation Pneumonitis ( ) Pneumonia due to, please specify: ( ) Clinically unable to determine ( ) Other, please specify: COMMENTS: PLEASE ALSO DOCUMENT RESPONSE IN PROGRESS NOTES AND/OR DISCHARGE SUMMARY Use of terms such as suspected, likely, or probable (associated with a specific diagnosis that is being evaluated, monitored, or treated as if it exists) are acceptable and can be restated in the discharge summary if not ruled out. MTDD
== END 2017-01-04 14:18 | DRG 872 ==
LOC: EDBD → EDUNIT# → N.ED 07:36 → N.EDINP 09:01 → N.CC 14:37 → N.5E 01-03 12:05
PROVIDERS: ADMIT Internal Medicine; ATTEND Internal Medicine